=== PATIENT | male | born 1985 | race Caucasian/White ===

== ENCOUNTER 2021-12-31 10:37 | Emergency (ER) | payer BC, SELFPAY ==
[2021-12-31 10:38] VITALS: BP 119/82; PULSE 92; RESP 14; TEMP 36.4; O2SAT 100
--- NOTE | 2021-12-31 10:51 | ED.SKABFB ---
HPI - Skin/Abscess/Foreign Bdy General Chief complaint: Skin/Abscess/Foreign Body <MARGARET Montalvo Last Filed: 12/31/21 16:13> Stated complaint: swelling and itching to right arm <MARGARET Montalvo Last Filed: 12/31/21 16:13> Time Seen by Provider: 12/31/21 10:44 <MARGARET Montalvo Last Filed: 12/31/21 16:13> History of Present Illness HPI narrative: Patient is a 36-year-old male here for evaluation of an erythematous right elbow. Patient states his symptoms began after he came in contact with a frog 6 days ago. Reports that his elbow became red and pruritic shortly afterwards, and he also noticed several discrete circular erythematous lesions develop over the past week. One of the lesions is draining clear fluid. Additionally developed swelling around his elbow 3 days ago. Patient has been keeping the area clean and covered with an ointment. He denies any pain in his elbow, pain in his hand, fevers, chills, nausea, vomiting, or other systemic symptoms. No history of diabetes or IVDU. <MARGARET Montalvo Last Filed: 12/31/21 16:13> Related Data Allergies/Adverse reactions: Allergies Allergy/AdvReac Type Severity Reaction Status Date / Time amoxicillin Allergy Swelling Verified 12/31/21 10:57 of Lip/Tongue/Throat <MARGARET Montalvo Last Filed: 12/31/21 16:13> Review of Systems Review of Systems: Gen.: Denies fevers or chills Eyes: Denies eye pain or visual change ENT: Denies congestion Respiratory: Denies shortness of breath or cough CV: Denies chest pain or palpitations GI: Denies abdominal pain nausea, emesis or diarrhea denies burning, urgency, frequency or hematuria Musculoskeletal: Denies back pain or muscle pain Neuro: Denies numbness, tingling, weakness or focal weakness Skin: Reports rash as per HPI Except as documented, all other systems reviewed and negative <MARGARET Montalvo Last Filed: 12/31/21 16:13> Exam Narrative: Gen: Alert, oriented, no acute distress Eyes: EOMI, no icterus Pulm: Respirations even and unlabored, symmetric thorax expansion, no audible stridor or visible cyanosis CV: Regular rate per telemetry GI: No distension, no voluntary/involuntary guarding Neuro: AOx4, moves all extremities without apparent difficulty or weakness, follows commands MSK: No pain with active or passive range of motion of elbow. Skin: There is a 5 cm area of erythema proximal to the right elbow with about 5 erythematous papules proximal to the erythema. One papule is open but is not actively draining material. No discharge expressed with manual manipulation. There is a 3 cm area of circular pitting edema distal to the elbow with no overlying erythema. Psych: Normal mood/affect, insight/judgement good, adequate fund of knowledge, recent/remote memory intact <Joanne Serna PA-C - Last Filed: 12/31/21 16:13> Course Vital Signs Vital signs: Vital Signs Temperature 97.6 F 12/31/21 10:38 Pulse Rate 92 12/31/21 10:38 Respiratory Rate 14 12/31/21 10:38 Blood Pressure 119/82 12/31/21 10:38 Pulse Oximetry 100 12/31/21 10:38 Oxygen Delivery Room Air 12/31/21 10:38 Temperature 97.6 F 12/31/21 10:38 Pulse Rate 92 12/31/21 10:38 Respiratory Rate 14 12/31/21 10:38 Blood Pressure 119/82 12/31/21 10:38 Pulse Oximetry 100 12/31/21 10:38 Oxygen Delivery Room Air 12/31/21 10:38 <Joanne Serna PA-C - Last Filed: 12/31/21 16:13> Vital Signs Temperature 97.6 F 12/31/21 10:38 Pulse Rate 92 12/31/21 10:38 Respiratory Rate 14 12/31/21 10:38 Blood Pressure 119/82 12/31/21 10:38 Pulse Oximetry 100 12/31/21 10:38 Oxygen Delivery Room Air 12/31/21 10:38 Temperature 97.6 F 12/31/21 10:38 Pulse Rate 92 12/31/21 10:38 Respiratory Rate 14 12/31/21 10:38 Blood Pressure 119/82 05/28/22 10:38 Pulse Oximetry 100 12/31/21 10:
== END 2021-12-31 11:21 | disposition home or self-care (01) ==
LOC: ANHED 11:19
PROVIDERS: Emergency Provider Emergency Medicine
DX: L03.113 Cellulitis of right upper limb (principal)
CPT/HCPCS: 99283